=== PATIENT | male | born 1965 | race Caucasian/White ===

== ENCOUNTER 2016-09-22 09:52 | Emergency (ER) | payer OTHER ==
[~2016-09-22] VITALS: Ht 177.8 cm; Wt 95.0 kg
[2016-09-22 09:53] VITALS: BP 130/88; PULSE 75; RESP 20; TEMP 97.9; O2SAT 96
[2016-09-22] MEDS ORDERED: POLY10O EACH EYE (10:19)
--- NOTE | 2016-09-22 10:23 | PD ---
HPI Chief Complaint: Eye Problems/Injury Time Seen by Provider: 10:19 Travel History International Travel<30 days: No Contact w/Intl Traveler<30days: No Traveled to known affect area: No History of Present Illness HPI 51-year-old male presents to the emergency department for evaluation of bilateral eye redness, tearing and irritation. Patient states that 2 days ago he began to have left eye redness and irritation with increased tearing. States that this morning he woke up and now both eyes are irritated, red with increased tearing. States that he does have some crust in the eyes as well. He denies any injury or trauma to his eyes. Denies any foreign body or substance flying into his eye. Denies contact lens wearing. Denies any eye pain, vision loss, blurred vision, headache, lightheadedness, dizziness, nausea , vomiting, fever, chills, cough or cold symptoms. States that his 5-year-old neighbor had pink eye a few days ago when she came over and swam in their pool. No other complaints. [facility] Past Medical History Medical History: Denies Significant Hx Social History Alcohol Use: No Tobacco Use: No Substance Use: No Review of Systems Except as stated in HPI: all other systems reviewed are Neg Physical Exam Narrative GENERAL: Well-nourished and well-developed pleasant patient in no acute distress who is nontoxic appearing. SKIN: Warm and dry HEAD: Normocephalic and atraumatic. EYES: Bilateral conjunctival injection worse on the left side. Bilateral tearing and crusting. No injection, drainage, or hyphema noted. PERRLA. EOMI. ENT: No nasal drainage noted. Oropharynx is clear and the TMs are normal with good landmarks. NECK: Supple and the trachea is midline. CARDIOVASCULAR: Regular rate and rhythm. RESPIRATORY: Breath sounds are equal bilaterally with no accessory muscle use, wheezing, rhonchi, or crackles. NEUROLOGICAL: Awake, alert, and oriented. Normal speech and gait. Cranial nerves are grossly intact. Data Data Last Documented VS Vital Signs Date Time Temp Pulse Resp B/P Pulse Ox O2 Delivery O2 Flow Rate FiO2 09/22/16 09:53 97.9 75 20 130/88 96 Room Air MDM Medical Decision Making Medical Screen Exam Complete: Yes Emergency Medical Condition: Yes Differential Diagnosis Conjunctivitis versus bacterial versus viral versus allergic Narrative Course 51-year-old male presents to the emergency department for evaluation of bilateral eye redness and drainage. Patient is afebrile, vital signs are stable. History of physical examination are consistent with conjunctivitis. Patient will be prescribed Polytrim ophthalmic drops. Advised follow-up with his PCP as needed. Discussed supportive care. Patient verbalizes understanding and agreement with treatment plan. Diagnosis Primary Impression: Bilateral conjunctivitis Qualified Code: H10.33 - Acute bacterial conjunctivitis of both eyes Referrals: Primary Care Physician Patient Instructions: General Instructions Additional Instructions: Wash hands frequently. Apply warm compresses to help alleviate symptoms. Use drops as prescribed. Follow-up with your Primary Care Physician as needed. Return to the ED for any acute worsening of symptoms. Med/Other Pt SpecificInfo: Prescription(s) given Scripts Polymyxin B-Trimethoprim Opth Drops (Polytrim Opth Drops)10,000-0.1 Unit/Ml-% Soln1 Drop EACH EYE Q6HR 7 Days Ref 0 Prov:Bladimir Foreman MD 09/22/16 Disposition: 01 DISCHARGE HOME Condition: Stable Aurora Villegas Sep 22, 2016 10:23
== END 2016-09-22 10:34 | disposition home or self-care (01) ==
LOC: NEPK 09:52
DX: H10.9 Unspecified conjunctivitis (principal)
CPT/HCPCS: 99283